=== PATIENT | female | born 1980 | race Caucasian/White ===

== ENCOUNTER → 2016-09-01 | Outpatient (CLI) | payer BC ==
[2016-03-30 14:16] VITALS: BP 130/63
[~2016-09-01] MED LIST: NOVOLOG 100U100 U/M1
== END ==
LOC: LAB 08:05
DX: E10.9 Type 1 diabetes mellitus without complications (principal)

== ENCOUNTER → 2016-12-29 | Outpatient (CLI) | payer BC ==
[2016-03-30 14:16] VITALS: BP 130/63
== END ==
LOC: LAB 07:45
DX: E10.9 Type 1 diabetes mellitus without complications (principal)

== ENCOUNTER → 2017-08-02 | Outpatient (CLI) | payer BC ==
[2016-03-30 14:16] VITALS: BP 130/63
[2017-08-02 16:09] LABS: EOS # 0.1 (0.04-0.40); EOS % 1.2 % (1.0-5.0); HEMATOCRIT 37.5 % (37.0-47.0); HEMOGLOBIN 12.8 g/dL (12.5-16.0); LYMPH# 2.8 (1.50-4.00); MEAN CELL VOLUME 92 fl (78-100); MEAN CORPUSCULAR HEMOGLOBIN 31 pg (27-31); MEAN CORPUSCULAR HGB CONC 34 g/dL (33-37); MEAN PLATELET VOLUME 8.7 fl (7.4-10.4); MONO # 0.6 (0.20-0.80); NEU # 5.4 (1.40-6.50); PLATELET COUNT 215 K/mm3 (130-400); RED CELL DISTRIBUTION WIDTH 12.8 % (11.5-14.5)
[2017-08-02 16:34] LABS: ALBUMIN 3.3 g/dL (3.5-5.0); ALT/SGPT 28 U/L (9-52); AST-SGOT 22 U/L (14-36); BUN/CREATININE RATIO 16.4 (6.0-26.0); CARBON DIOXIDE 29 mmol/L (22-30); GLUCOSE 84 mg/dL (65-105); POTASSIUM 3.6 mmol/L (3.6-5.0); SODIUM 137 mmol/L (137-145); TOTAL PROTEIN 6.4 g/dL (6.3-8.2)
[2017-08-02 17:33] LABS: ERYTHROCYTE SEDIMENTATION RATE 6 mm/hr (0-20)
[2017-08-02 17:49] LABS: TOTAL BILIRUBIN < 0.1 mg/dL (0.2-1.3)
[2017-08-02 18:01] LABS: PH-URINE 5.5 (5.0 - 8.0); URINE APPEARANCE CLEAR; URINE BILIRUBIN NEGATIVE (NEGATIVE); URINE BLOOD NEGATIVE (NEGATIVE); URINE COLOR YELLOW; URINE GLUCOSE NEGATIVE (NEGATIVE); URINE KETONE NEGATIVE (NEGATIVE); URINE LEUKOCYTE ESTERASE NEGATIVE (NEGATIVE); URINE NITRATE NEGATIVE (NEGATIVE); URINE PROTEIN(semi-quant) NEGATIVE (NEGATIVE); URINE UROBILINOGEN NORMAL (NORMAL)
[2017-08-02 18:02] LABS: URINE WBC 0-1 /hpf (0-3)
[2017-08-03 00:08] LABS: CREATININE OTHER SOURCE 29 mg/dL (())
== END ==
LOC: LAB 15:57
PROVIDERS: Internal Medicine
DX: Z00.00 Encounter for general adult medical examination without abnormal findings (principal); E10.9 Type 1 diabetes mellitus without complications; E78.2 Mixed hyperlipidemia

== ENCOUNTER 2017-12-31 19:14 | Emergency (ER) | payer BC ==
[2017-12-31] MEDS ORDERED: GOOD NEIGHBOR100 M2 PO (19:19)
[2017-12-31] MEDS ORDERED: ZYRTEC ALLERGY10 MG PO (19:19)
[2017-12-31] MEDS ORDERED: ONE A DAY PREN1 EACH PO (19:19)
[2017-12-31 21:02] VITALS: BP 120/75
== END 2017-12-31 21:02 | disposition home or self-care (01) ==
LOC: ED 19:14
DX: O99.89 Other specified diseases and conditions complicating pregnancy, childbirth and the puerperium (principal); M25.562 Pain in left knee; W01.0XXA Fall on same level from slipping, tripping and stumbling without subsequent striking against object, initial encounter; Y92.219 Unspecified school as the place of occurrence of the external cause; Z3A.36 36 weeks gestation of pregnancy; O24.013 Pre-existing type 1 diabetes mellitus, in pregnancy, third trimester; E10.8 Type 1 diabetes mellitus with unspecified complications; Z79.899 Other long term (current) drug therapy; Z79.4 Long term (current) use of insulin

== ENCOUNTER → 2018-03-21 | Outpatient (CLI) | payer BC ==
[~2018-03-21] MED LIST changes: +GOOD NEIGHBOR100 M2 PO; +ONE A DAY PREN1 EACH PO; +ZYRTEC ALLERGY10 MG PO
== END ==
LOC: RAD 15:08
DX: M79.672 Pain in left foot (principal)

== ENCOUNTER → 2018-08-24 | Outpatient (CLI) | payer BC ==
[2018-08-24 07:42] LABS: POTASSIUM 4.1 mmol/L (3.6-5.0); TOTAL BILIRUBIN 0.7 mg/dL (0.2-1.3)
[2018-08-24 07:48] LABS: CALCIUM 9.2 mg/dL (8.4-10.2); TOTAL PROTEIN 7.2 g/dL (6.3-8.2)
[2018-08-24 08:03] LABS: BASO # 0.1 (0.02-0.10); EOS # 0.1 (0.04-0.40); EOS % 2.8 % (1.0-5.0); HEMATOCRIT 43.1 % (37.0-47.0); HEMOGLOBIN 14.3 g/dL (12.5-16.0); LYMPH# 2.6 (1.50-4.00); MEAN CELL VOLUME 93 fl (78-100); MEAN CORPUSCULAR HEMOGLOBIN 31 pg (27-31); MEAN CORPUSCULAR HGB CONC 33 g/dL (33-37); MONO # 0.4 (0.20-0.80); NEU # 1.8 (1.40-6.50); PLATELET COUNT 255 K/mm3 (130-400); RED BLOOD COUNT 4.64 M/mm3 (4.10-5.30); RED CELL DISTRIBUTION WIDTH 12.5 % (11.5-14.5)
[2018-08-24 09:10] LABS: PH-URINE 6.5 (5.0 - 8.0); URINE APPEARANCE CLEAR; URINE BILIRUBIN NEGATIVE (NEGATIVE); URINE BLOOD NEGATIVE (NEGATIVE); URINE COLOR YELLOW; URINE GLUCOSE NEGATIVE (NEGATIVE); URINE KETONE NEGATIVE (NEGATIVE); URINE LEUKOCYTE ESTERASE NEGATIVE (NEGATIVE); URINE NITRATE NEGATIVE (NEGATIVE); URINE PROTEIN(semi-quant) NEGATIVE (NEGATIVE); URINE UROBILINOGEN NORMAL (NORMAL); URINE WBC 0-1 /hpf (0-3)
[2018-08-24 09:20] LABS: ERYTHROCYTE SEDIMENTATION RATE 5 mm/hr (0-20)
[2018-08-24 18:28] LABS: CREATININE OTHER SOURCE 107 mg/dL (())
== END ==
LOC: LAB 07:07
PROVIDERS: Internal Medicine
DX: Z00.00 Encounter for general adult medical examination without abnormal findings (principal)

== ENCOUNTER → 2020-07-19 | Outpatient (CLI) | payer BC ==
[2020-07-19 17:01] LABS: EOS # 0.2 (0.04-0.40); EOS % 1.7 % (1.0-5.0); HEMATOCRIT 42.6 % (37.0-47.0); HEMOGLOBIN 14.5 g/dL (12.5-16.0); LYMPH# 2.8 (1.50-4.00); MEAN CELL VOLUME 95 fl (78-100); MEAN CORPUSCULAR HEMOGLOBIN 32 pg (27-31); MEAN CORPUSCULAR HGB CONC 34 g/dL (33-37); MEAN PLATELET VOLUME 8.5 fl (7.4-10.4); MONO # 0.4 (0.20-0.80); NEU # 5.2 (1.40-6.50); PLATELET COUNT 204 K/mm3 (130-400); POTASSIUM 4.2 mmol/L (3.5-5.1); RED BLOOD COUNT 4.49 M/mm3 (4.10-5.30); RED CELL DISTRIBUTION WIDTH 11.7 % (11.5-14.5); WHITE BLOOD COUNT 8.6 K/mm3 (4.8-10.8)
[2020-07-19 17:02] LABS: ALBUMIN 3.8 g/dL (3.5-5.0)
[2020-07-19 17:03] LABS: CALCIUM 9.1 mg/dL (8.3-10.5)
[2020-07-19 17:04] LABS: TOTAL PROTEIN 6.9 g/dL (6.4-8.3)
[2020-07-19 17:06] LABS: TOTAL BILIRUBIN 0.8 mg/dL (0.2-1.2)
== END ==
LOC: LAB 16:31
PROVIDERS: Internal Medicine
DX: E10.9 Type 1 diabetes mellitus without complications (principal); E78.2 Mixed hyperlipidemia; F41.1 Generalized anxiety disorder; K90.9 Intestinal malabsorption, unspecified

== ENCOUNTER → 2021-03-25 | Outpatient (CLI) | payer BC ==
[2021-03-25 09:43] LABS: BASO # 0.06 K/mm3 (0.02-0.10); EOS # 0.16 K/mm3 (0.04-0.40); EOS % 2.8 % (1.0-5.0); HEMATOCRIT 43.1 % (37.0-47.0); HEMOGLOBIN 14.7 g/dL (12.5-16.0); LYMPH# 1.96 K/mm3 (1.50-4.00); MEAN CELL VOLUME 96 fl (78-100); MEAN CORPUSCULAR HEMOGLOBIN 33 pg (27-31); MEAN CORPUSCULAR HGB CONC 34 g/dL (33-37); MEAN PLATELET VOLUME 8.6 fl (7.4-10.4); MONO # 0.34 K/mm3 (0.20-0.80); NEU # 3.12 K/mm3 (1.40-6.50); PLATELET COUNT 228 K/mm3 (130-400); RED CELL DISTRIBUTION WIDTH 11.7 % (11.5-14.5); WHITE BLOOD COUNT 5.7 K/mm3 (4.8-10.8)
[2021-03-25 09:53] LABS: ALBUMIN 3.5 g/dL (3.5-5.0)
[2021-03-25 09:54] LABS: POTASSIUM 4.5 mmol/L (3.5-5.1)
[2021-03-25 09:55] LABS: CALCIUM 9.1 mg/dL (8.3-10.5)
[2021-03-25 09:56] LABS: TOTAL PROTEIN 6.5 g/dL (6.4-8.3)
[2021-03-25 09:58] LABS: TOTAL BILIRUBIN 0.3 mg/dL (0.2-1.2)
[2021-03-25 11:33] LABS: URINE APPEARANCE CLEAR; URINE BILIRUBIN NEGATIVE (NEGATIVE); URINE BLOOD TRACE (NEGATIVE); URINE COLOR YELLOW; URINE KETONE 1+ (NEGATIVE); URINE LEUKOCYTE ESTERASE NEGATIVE (NEGATIVE); URINE NITRATE NEGATIVE (NEGATIVE); URINE PROTEIN(semi-quant) TRACE mg/dL (NEGATIVE); URINE UROBILINOGEN NORMAL (NORMAL)
[2021-03-25 11:34] LABS: URINE WBC 0-1 /hpf (0-3)
[2021-03-29 01:18] LABS: RETIC - SEND OUT AMS
== END ==
LOC: LAB 07:55
PROVIDERS: Physician Assistant
DX: Z79.899 Other long term (current) drug therapy (principal)

== ENCOUNTER → 2021-06-06 | Outpatient (CLI) | payer BC ==
[2021-06-06 09:06] LABS: BASO # 0.05 K/mm3 (0.02-0.10); EOS % 1.5 % (1.0-5.0); HEMATOCRIT 42.9 % (37.0-47.0); HEMOGLOBIN 14.3 g/dL (12.5-16.0); LYMPH# 2.17 K/mm3 (1.50-4.00); MEAN CELL VOLUME 98 fl (78-100); MEAN CORPUSCULAR HEMOGLOBIN 33 pg (27-31); MEAN CORPUSCULAR HGB CONC 33 g/dL (33-37); MEAN PLATELET VOLUME 8.6 fl (7.4-10.4); MONO # 0.43 K/mm3 (0.20-0.80); NEU # 3.82 K/mm3 (1.40-6.50); PLATELET COUNT 259 K/mm3 (130-400); RED CELL DISTRIBUTION WIDTH 12.5 % (11.5-14.5); WHITE BLOOD COUNT 6.6 K/mm3 (4.8-10.8)
[2021-06-06 09:14] LABS: ALBUMIN 3.7 g/dL (3.5-5.0)
[2021-06-06 09:15] LABS: CALCIUM 9.1 mg/dL (8.3-10.5)
[2021-06-06 09:16] LABS: TOTAL PROTEIN 6.5 g/dL (6.4-8.3)
[2021-06-06 09:18] LABS: TOTAL BILIRUBIN 0.7 mg/dL (0.2-1.2)
[2021-06-06 09:19] LABS: URINE APPEARANCE CLEAR; URINE COLOR YELLOW; URINE PROTEIN(semi-quant) TRACE (NEGATIVE)
[2021-06-06 09:20] LABS: URINE BILIRUBIN NEGATIVE (NEGATIVE); URINE BLOOD TRACE (NEGATIVE); URINE KETONE NEGATIVE (NEGATIVE); URINE LEUKOCYTE ESTERASE NEGATIVE (NEGATIVE); URINE NITRATE NEGATIVE (NEGATIVE); URINE UROBILINOGEN NORMAL (NORMAL); URINE WBC 0-1 /hpf (0-3)
[2021-06-06 09:59] LABS: ERYTHROCYTE SEDIMENTATION RATE 3 mm/hr (0-20)
[2021-06-09 01:21] LABS: RETIC - SEND OUT AMS
== END ==
LOC: LAB 08:06
PROVIDERS: Internal Medicine
DX: G43.909 Migraine, unspecified, not intractable, without status migrainosus (principal); Z79.899 Other long term (current) drug therapy

== ENCOUNTER → 2021-09-12 | Outpatient (CLI) | payer BC | LOC: RAD 08:47 | DX: M79.672 Pain in left foot (principal) ==

== ENCOUNTER → 2023-09-14 | Outpatient (CLI) | payer BC ==
[~2023-09-14] MED LIST changes: +VENLAFAXINE HC100 MG PO
== END ==
LOC: RAD 11:29
DX: R10.13 Epigastric pain (principal)

== ENCOUNTER → 2023-09-28 | Outpatient (CLI) | payer BC ==
[2023-09-28 09:08] LABS: EOS # 0.16 K/mm3 (0.04-0.40); EOS % 1.2 % (1.0-5.0); HEMATOCRIT 46.5 % (37.0-47.0); LYMPH# 2.34 K/mm3 (1.50-4.00); MEAN CELL VOLUME 93 fl (78-100); MEAN CORPUSCULAR HEMOGLOBIN 32 pg (27-31); MEAN CORPUSCULAR HGB CONC 34 g/dL (33-37); MEAN PLATELET VOLUME 8.4 fl (7.4-10.4); NEU # 10.35 K/mm3 (1.40-6.50); PLATELET COUNT 276 K/mm3 (130-400); RED BLOOD COUNT 4.99 M/mm3 (4.10-5.30); RED CELL DISTRIBUTION WIDTH 12.2 % (11.5-14.5); WHITE BLOOD COUNT 13.6 K/mm3 (4.8-10.8)
[2023-09-28 09:13] LABS: ALBUMIN 3.8 g/dL (3.5-5.0)
[2023-09-28 09:14] LABS: CALCIUM 9.1 mg/dL (8.3-10.5)
[2023-09-28 09:16] LABS: TOTAL PROTEIN 6.8 g/dL (6.4-8.3)
[2023-09-28 09:18] LABS: TOTAL BILIRUBIN 0.8 mg/dL (0.2-1.2)
[2023-09-28 09:30] LABS: PH-URINE 5.5 (5.0 - 8.0); URINE APPEARANCE CLOUDY (CLEAR); URINE BILIRUBIN 1+ (NEGATIVE); URINE COLOR YELLOW (YELLOW); URINE GLUCOSE NEGATIVE (NEGATIVE); URINE KETONE 2+ (NEGATIVE); URINE PROTEIN(semi-quant) NEGATIVE (NEGATIVE)
[2023-09-28 09:31] LABS: URINE BLOOD NEGATIVE (NEGATIVE); URINE LEUKOCYTE ESTERASE NEGATIVE (NEGATIVE); URINE NITRATE NEGATIVE (NEGATIVE)
[2023-09-28 09:32] LABS: URINE MUCUS PRESENT (NOT PRESENT)
[2023-10-30 14:38] LABS: CREATININE OTHER SOURCE 196.8
== END ==
LOC: LAB 08:45
PROVIDERS: Internal Medicine
DX: E78.2 Mixed hyperlipidemia (principal); E10.9 Type 1 diabetes mellitus without complications; K90.9 Intestinal malabsorption, unspecified; R10.11 Right upper quadrant pain

== ENCOUNTER → 2024-02-11 | Outpatient (CLI) | payer BC | LOC: RAD 15:46 | DX: R91.8 Other nonspecific abnormal finding of lung field (principal); D71 Functional disorders of polymorphonuclear neutrophils ==

== ENCOUNTER → 2024-02-18 | Outpatient (CLI) | payer BC ==
[2024-02-18 10:39] LABS: HEMATOCRIT 44.3 % (37.0-47.0); HEMOGLOBIN 15.3 g/dL (12.5-16.0); MEAN PLATELET VOLUME 8.2 fl (7.4-10.4); RED BLOOD COUNT 4.75 M/mm3 (4.10-5.30); RED CELL DISTRIBUTION WIDTH 12.2 % (11.5-14.5)
[2024-02-18 10:49] LABS: ALBUMIN 3.8 g/dL (3.5-5.0)
[2024-02-18 10:50] LABS: CALCIUM 9.3 mg/dL (8.3-10.5)
[2024-02-18 10:52] LABS: TOTAL PROTEIN 6.7 g/dL (6.4-8.3)
[2024-02-18 10:53] LABS: TOTAL BILIRUBIN 0.5 mg/dL (0.2-1.2)
== END ==
LOC: LAB 10:27
PROVIDERS: Internal Medicine
DX: M79.642 Pain in left hand (principal); G43.909 Migraine, unspecified, not intractable, without status migrainosus

== ENCOUNTER → 2024-09-05 | Outpatient (CLI) | payer BC | LOC: RAD 08:44 | DX: R91.8 Other nonspecific abnormal finding of lung field (principal) ==